=== PATIENT | male | born 1965 | race Caucasian/White ===

== ENCOUNTER → 2017-09-19 | Day surgery (SDC) | payer OTHER ==
[~2017-09-19] MED LIST: BUPIVACAINE HCL PF 0.25% 30 ML VIAL ONE; KETOROLAC TROMETHAMINE 30 MG/ML (IVP) VIAL IV PUSH ONE; LACTATED RINGER'S 1000 ML INJ 1,000 ML ONE; MIDAZOLAM HCL 2 MG/2 ML VIAL ONE; ONDANSETRON HCL 4 MG/2 ML VIAL IV PUSH ONE; PROPOFOL 200 MG/20 ML AMP IV ONE; Z.0.NO CURRENT MEDS; ceFAZolin 2 GM PREMIX 50 ML ONE; oxyCODONE/ACETAMINOPHEN 5 MG/325 MG TAB ONE
--- NOTE | 2017-09-19 12:22 | TN ---
cc: Varun Betancur MD DATE OF SURGERY: 09/19/2017 DATE OF PROCEDURE: 09/19/2017. PREOPERATIVE DIAGNOSIS: Symptomatic enlarging right inguinal hernia. POSTOPERATIVE DIAGNOSIS: Indirect right inguinal hernia. PROCEDURE PERFORMED: Laparoscopic right inguinal hernia repair with mesh. SURGEON: Varun Betancur MD WRAPPER AND PRESERVER: HUMAIRA Serrano ANESTHESIA: General LMA. COMPLICATIONS: None. INDICATIONS FOR PROCEDURE: Mr. Dawkins is a pleasant 52-year-old gentleman who had a symptomatic right inguinal hernia. It was noticed about a month ago. It was getting bigger and causing him discomfort. His history is significant for undergoing a laparoscopic left inguinal hernia repair approximately 1 year ago. He was seen and evaluated in the office and offered elective repair. Risks and benefits of repair with mesh was discussed with him and he was agreeable. DETAILS: The patient was identified, brought to the operating room, placed supine on the operating table. After adequate general anesthesia was achieved with LMA, the anterior abdomen and groin was prepped and draped in standard surgical fashion. Infraumbilical space was anesthetized with 0.25% Marcaine. Infraumbilical incision was made in the patient's previous incision. Dissection was carried down to subcutaneous tissue to the anterior rectus fascia. Anterior rectus fascia was then incised horizontally off the midline. Right rectus muscle was identified and retracted laterally. Preperitoneal space was entered with blunt finger dissection. Blunt dissecting balloon was inserted into the preperitoneal space and insufflated with 30 pumps of air under direct vision using 0-degree laparoscope. Next the balloon dissector was removed and balloon trocar inserted. The preperitoneal space was insufflated to 11 mmHg using CO2 gas. Next, two 5 mm trocars were placed in the lower midline under direct vision. Attention was first directed to the midline where Say's ligament and pubic tubercle were identified. Dissection proceeded out laterally, identifying the cord structures traveling with a peritoneal hernia sac. Peritoneal hernia sac was then brought back over an [id number] technique. The sac was quite long. A small hole was made in the sac and the sac was therefore ligated with a 2-0 Vicryl Endoloop. The sac was dissected several centimeters away from the internal ring. A posterior window was then made behind the cord structures. The distal hernia sac was excised and discarded. A piece of polypropylene mesh was inserted with a slit cut for the cord structures. Mesh was placed through the posterior window and then the slit reapproximated using the pro-tacking device. This tighten the internal ring appropriately around the cord structures. Mesh was then secured medially at Say's ligament and superiorly along the posterior abdominal wall fascia. An onlay mesh was then placed over the first mesh in order to buttress the slit. This mesh was secured medially and laterally. With this, the indirect and direct spaces were well covered by mesh with generous overlap. 0.25% Marcaine was then injected to the operative site. The peritoneal repair Endoloop was inspected and found to be intact with no exposed bowel or omentum. The inferior border of the mesh was then held down, the peritoneal sac held up and the preperitoneal space was desufflated. Peritoneum was seen to roll up over the mesh. All trocars were then removed under direct vision. Anterior rectus fascia was repaired with a 0 Vicryl in a [id number] fashion. The skin was closed with 4-0 Vicryl. Please note the [facility] grooming assistant was medically necessary due to the complexity of the procedure and her advanced surgical skills. She also has extensive knowledge of my surgical technique and assisted in expediting the surgical procedure. The patient tolerated the procedure well, was awaken and brought to recovery in stable condition. MD CONNOR Ortiz/GINO , 11:54 AM , 12:21 PM [email or web address]
== END | disposition home or self-care (01) ==
LOC: ESDC 08:56
PROVIDERS: ATTEND Surgery Trauma Surgery
DX: K40.90 Unilateral inguinal hernia, without obstruction or gangrene, not specified as recurrent (principal)
CPT/HCPCS: 00840; 49650; C1727; C1781; J0690; J1885; J2250; J2405; J3010; J7120